=== PATIENT | female | born 1970 | race Two or more races ===

== ENCOUNTER 2018-11-03 11:30 | Emergency (ER) | payer MEDICARE, MEDICAID ==
[~2018-11-03] VITALS: Ht 170.2 cm; Wt 99.2 kg
[~2018-11-03 11:30] MED LIST: ADV50100 IH; ALPR-624 PO; AMIT-189 PO; DIAZ5TAB PO; GUAI120015 PO; HYDR-4353 PO; IBUP-1984 PO; IPRA3AMP31 IH; LEVA15HF4 IH; LEVO25TA2 PO; NYST1000 PO; ONDA4TAB6 PO; PARO10TA85 PO; VAL5T PO
[2018-11-03 11:48] VITALS: BP 119/88
== END 2018-11-03 14:13 | disposition left against medical advice (07) ==
LOC: ER 11:31
DX: J44.9 Chronic obstructive pulmonary disease, unspecified (principal); Z53.21 Procedure and treatment not carried out due to patient leaving prior to being seen by health care provider; Z88.0 Allergy status to penicillin; Z88.8 Allergy status to other drugs, medicaments and biological substances; Z79.899 Other long term (current) drug therapy
CPT/HCPCS: 93005

== ENCOUNTER 2020-04-07 21:45 | Emergency (ER) | payer MEDICARE, MEDICAID ==
[~2020-04-07] VITALS: Ht 170.2 cm; Wt 95.5 kg
[2020-04-07 21:58] VITALS: BP 126/66
[2020-04-07 22:29] LABS: URINE HCG NEGATIVE (NEG)
[2020-04-07 22:30] LABS: CLARITY,URINE CLEAR (Clear); COLOR,URINE YELLOW (Yellow); GLUCOSE, URINE NEGATIVE (Neg); KETONES,URINE NEGATIVE (Neg); LEUKOCYTE ESTERASE ,URINE NEGATIVE (Neg); NITRITES, URINE NEGATIVE (Neg); OCCULT BLOOD,URINE NEGATIVE (Neg); PROTEIN,URINE NEGATIVE (Neg); UROBILINOGEN,URINE 0.2 E.U/dL (0.2-1.0)
[2020-04-07 22:32] LABS: BASOPHILS # (AUTO) 0.1 X10'3 (0-0.2); BASOPHILS % (AUTO) 0.7 % (0-1); EOSINOPHILS # (AUTO) 0.4 X10'3 (0-0.9); EOSINOPHILS % (AUTO) 5.7 % (0-6); HEMATOCRIT 36.7 % (35.0-45.0); HEMOGLOBIN 12.1 g/dl (12.0-16.0); LYMPHOCYTES # (AUTO) 2.3 X10'3 (1.1-4.8); LYMPHOCYTES % (AUTO) 31.2 % (21-51); MEAN CORPUSCULAR HEMOGLOBIN 29.1 PG (27.0-31.0); MEAN PLATELET VOLUME 10.3 FL (7.4-10.4); MONOCYTES # (AUTO) 0.6 X10'3 (0-0.9); MONOCYTES % (AUTO) 8.4 % (2-12); PLATELET COUNT 224 X10'3 (140-440); RED BLOOD COUNT 4.17 X10'6 (4.20-5.60); RED CELL DISTRIBUTION WIDTH 14.1 % (11.5-14.5); WHITE BLOOD COUNT 7.4 X10'3 (4.5-11.0)
[2020-04-07 22:34] LABS: UA COLLECTION TYPE CLN CATCH MIDSTREAM
[2020-04-07 22:42] LABS: ALANINE AMINOTRANSFERASE 21 U/L (12-78); ALBUMIN 3.6 G/DL (3.4-5.0); ALBUMIN/GLOBULIN RATIO 1.1 (1.1-1.5); ALKALINE PHOSPHATASE 51 IU/L (46-116); ANION GAP 7 (8-16); ASPARTATE AMINO TRANSFERASE 16 U/L (10-37); BILIRUBIN,TOTAL 0.3 MG/DL (0.1-1.0); BLOOD UREA NITROGEN 14 MG/DL (7-18); CALCIUM 8.9 MG/DL (8.5-10.1); CHLORIDE 104 MMOL/L (99-107); CREATININE 1.08 MG/DL (0.40-0.90); GLUCOSE 111 MG/DL (70-104); LIPASE 104 U/L (73-393); POTASSIUM 4.2 MMOL/L (3.5-5.1); SODIUM 138 MMOL/L (135-145); TOTAL CARBON DIOXIDE 27.2 MMOL/L (24-32); eGFR 54 ML/MIN
== END 2020-04-08 03:06 | disposition home or self-care (01) ==
LOC: ER 21:46
DX: R10.13 Epigastric pain (principal); K21.9 Gastro-esophageal reflux disease without esophagitis; J45.909 Unspecified asthma, uncomplicated; G47.30 Sleep apnea, unspecified; E11.9 Type 2 diabetes mellitus without complications; G89.29 Other chronic pain; F41.9 Anxiety disorder, unspecified; F31.9 Bipolar disorder, unspecified; F12.90 Cannabis use, unspecified, uncomplicated; Z56.0 Unemployment, unspecified; Z88.0 Allergy status to penicillin; Z88.8 Allergy status to other drugs, medicaments and biological substances; Z79.899 Other long term (current) drug therapy
CPT/HCPCS: 36415; 80053; 81003; 81025; 83690; 85025; 99283

== ENCOUNTER 2025-04-28 14:29 | Outpatient (CLI) | payer MEDICARE, MEDICAID ==
[~2025-04-28 14:29] MED LIST changes: -AMIT-189 PO; +AMIT-311 PO; +DIAZ5TAB22 PO; -NYST1000 PO; +NYST100069 PO; +PARO-153 PO; -PARO10TA85 PO; -VAL5T PO
--- NOTE | 2025-04-28 16:09 | RADIOLOGY REPORT ---
EXAM: CT CT CHEST LOW DOSE INDICATION: CHRONIC OBSTRUCTIVE PULMONARY DISEASE W (ACUTE) EX TECHNIQUE: Low-dose noncontrast CT of the lungs have been obtained. All CT scans at this facility use dose modulation, iterative reconstruction, and/or weight based dosing when appropriate to reduce radiation dose to as low as reasonably achievable. COMPARISON: None FINDINGS: LOWER NECK: Unremarkable LYMPH NODES/MEDIASTINUM: No abnormal lymph nodes by CT size criteria CARDIOVASCULAR: Normal cardiac size. No pericardial effusion. No aneurysmal dilatation of the great vessels. No significant coronary artery calcifications. UPPER ABDOMEN: Limited evaluation secondary to photon starvation. Suspected diffuse hepatic steatosis. MUSCULOSKELETAL: No acute fracture or aggressive focal osseous lesion. CHEST WALL: Unremarkable. LUNG/PLEURAL SPACE: No consolidation, suspicious focal airspace opacity, or suspicious nodules. No pleural effusion or pneumothorax. Trace paraseptal emphysema. IMPRESSION: 1. No CT evidence of an acute intrathoracic process. 2. No suspicious pulmonary nodule. LUNG-RADS: 1- Negative RECOMMENDATION: Annual low dose lung screening CT is recommended for 15 years after smoking cessation or until age 77. CITATION: Lung cancer screening categorization and recommendations per [employer] Lung-RADS Version 1.0 (http://[email or web address].org/Quality- Safety/Resources/LungRADS).
== END 2025-04-28 23:59 | disposition home or self-care (01) ==
LOC: RAD 14:29
PROVIDERS: ATTEND Internal Medicine
DX: Z12.2 Encounter for screening for malignant neoplasm of respiratory organs (principal); J44.1 Chronic obstructive pulmonary disease with (acute) exacerbation; F17.210 Nicotine dependence, cigarettes, uncomplicated
CPT/HCPCS: 71271